=== PATIENT | male | born 1955 | race Caucasian/White ===

== ENCOUNTER 2021-03-21 17:16 | Emergency (ER) | payer MEDICARE, OTHER ==
[~2021-03-21] VITALS: Ht 170.2 cm; Wt 77.1 kg
--- NOTE | 2021-03-21 17:16 | NUR ---
Patient BIBA BLS, transferred to bed 4. RN evaluating the patient at bedside.
[2021-03-21 17:21] VITALS: BP 121/78
--- NOTE | 2021-03-21 17:29 | NUR ---
PT [facility] FROM [facility] C/O SUDDEN ONSET MID ABD PAIN SINCE 1600 TODAY. PT DENIES N/V/D. MEDHX: HT ALLERGIES: PCN
--- NOTE | 2021-03-21 17:34 | NUR ---
SPOKE TO PATIENTS FRIEND [facility]. STATES HE WOULD LIKE PATIENT TO KNOW THAT HE CALLED AND CALL BACK FOR UPDATES [facility]: [phone]
[2021-03-21] MEDS ORDERED: ONDANSETRON 4 MG ODT PO ONE (18:10)
[2021-03-21] MEDS ORDERED: DICYCLOMINE 20 MG/2 ML VIAL IM ONE (18:10)
--- NOTE | 2021-03-21 18:20 | NUR ---
PT REFUSED MEDS. DR LEVINE AWARE
[2021-03-21] MEDS ORDERED: BEN10 PO (18:40)
--- NOTE | 2021-03-21 18:55 | NUR ---
Patient discharged with v/s stable. Written and verbal after care instructions given and explained. Patient alert, oriented and verbalized understanding of instructions. Ambulatory with steady gait. All questions addressed prior to discharge. ID band removed. Patient advised to follow up with PMD. Rx of BENTYL given. Patient educated on indication of medication including possible reaction and side effects. Opportunity to ask questions provided and answered.
== END 2021-03-21 18:55 | disposition home or self-care (01) ==
LOC: MED 17:16
DX: R10.9 Unspecified abdominal pain (principal); I10 Essential (primary) hypertension; Z88.0 Allergy status to penicillin; Z79.899 Other long term (current) drug therapy
CPT/HCPCS: 99283; J0500; Q0162